=== PATIENT | female | born 1945 | race Asian ===

== ENCOUNTER 2016-09-14 07:44 | Inpatient (IN) | payer OTHER ==
[2016-09-14] VITALS (18 sets, daily range): BP systolic 118–143; BP diastolic 71–82; PULSE 80–92; RESP 14–25
[~2016-09-14] VITALS: Wt 56.8 kg
[2016-09-14] MEDS ORDERED: NITROGLYCERIN (IC) 100 MCG/ML INJ ONE (07:59)
[2016-09-14] MEDS ORDERED: LIDOCAINE 1% (MDV) 20 ML INJ ONE (07:59)
[2016-09-14] MEDS ORDERED: VERAPAMIL 5 MG INJ ONE (07:59)
[2016-09-14] MEDS ORDERED: HEPARIN 1000 UNITS/ML 10 ML INJ ONE (07:59)
[2016-09-14] MEDS ORDERED: IOHEXOL 350MG/ML 50 ML BTL ONE (08:00)
[2016-09-14 08:05] LABS: ADD SCAN DIFF NO
[2016-09-14] MEDS ORDERED: FENTAnyl 50 MCG/ML VIAL ONE (08:05)
[2016-09-14] MEDS ORDERED: MIDAZOLAM 1 MG/ML 2 ML INJ ONE (08:06)
[2016-09-14 08:10] LABS: BASOPHIL # 0.1 10^3/ul (0.0-0.1); BASOPHILS % 0.8 % (0.0-2.0); EOSINOPHILS # 0.2 10^3/ul (0.0-0.5); EOSINOPHILS % 1.9 % (0.0-7.0); HEMOGLOBIN 13.3 g/dl (12.0-16.0); LYMPHOCYTES # 2.2 10^3/ul (0.8-2.9); LYMPHOCYTES % 26.2 % (15.0-51.0); MEAN CORPUSCULAR HEMOGLOBIN 30.6 pg (29.0-33.0); MEAN CORPUSCULAR HGB CONC 32.4 g/dl (32.0-37.0); MEAN CORPUSCULAR VOLUME 94.3 fl (82.0-101.0); MEAN PLATELET VOLUME 9.6 fl (7.4-10.4); MONOCYTE # 0.5 10^3/ul (0.3-0.9); MONOCYTES % 5.4 % (0.0-11.0); NEUTROPHIL # 5.6 10^3/ul (1.6-7.5); NEUTROPHILS % 65.2 % (39.0-77.0); PLATELET COUNT 343 10^3/UL (140-415); RED BLOOD COUNT 4.35 10^6/ul (4.20-5.40); RED CELL DISTRIBUTION WIDTH 13.4 % (11.5-14.5); WHITE BLOOD COUNT 8.5 10^3/ul (4.8-10.8)
--- NOTE | 2016-09-14 08:10 | RADRPT ---
PROCEDURE: XR Chest. CLINICAL INDICATION: Code STEMI, chest pain TECHNIQUE: An AP view of the chest was obtained. COMPARISON: No prior exam is available for comparison. FINDINGS: Lung volumes are low. There is prominence of the interstitial markings. No pleural effusion or pn eumothorax is seen. The cardiomediastinal silhouette is mildly enlarged . Calcifications are seen within the aortic arch. The osseous structures demonstrate senescent changes. IMPRESSION: 1. Mild prominence of the interstitial markings, may reflect mild underlying interstitial edema or chronic lung changes. 2. Mild cardiomegaly and aortic atherosclerosis. RPTAT: HH .Hilda James MD, MD Date Time Electronically viewed and signed by .Hilda James MD, on 09/14/2016 08:10 .G/
--- NOTE | 2016-09-14 08:17 | CONS ---
Date/Time of Note Date/Time of Note DATE: 09/14/16 TIME: 08:12 Assessment/Plan Assessment/Plan Chief Complaint/Hosp Course 71 yo presents to [facility] with chest pain, ekg suggests stemi Problems: Additional Assessment/Plan stemi anterior wall htn hyperlipidemia Plan: Cath. R/B reviewed, pt agrees to proceed and all questions answered. Dr. Ramesh Gilliland is her usual phlebotomy tech, and will contact him after procedure. Pt states no plans for elective surgery and able to take medications daily. Consultation Date/Type/Reason Admit Date/Time 09/14/16 Date of Consultation: September 14, 2016 Reason for Consultation stemi Hx of Present Illness 71 yo with htn and hyperlipidemia presents with chest pain that started initially yesterday morning, went away throughout the day, then recurred stronger at 5 am. Pt has never had this pain before. EKG from [facility] shows st elevations of anterior leads with reciprocal changes in inferior leads. Patient denies h/o CAD or KS. Constitutional: improved Eyes: no complaints ENT: no complaints Respiratory: no complaints Cardiovascular: chest pain Gastrointestinal: no complaints Genitourinary: no complaints Musculoskeletal: no complaints Skin: no complaints Neurologic: no complaints Endocrine: no complaints Psychological: nl mood/affect Past Medical History Medical History: high cholesterol, hypertension Past Surgical History Past Surgical Hx: no surgical history Family History Significant Family History: no pertinent family hx (negative for premature cad) Social History Alcohol Use: none Smoking Status: Never smoker Exam/Review of Systems Vital Signs Vitals Vital Signs Date Time Temp Pulse Resp B/P Pulse Ox O2 Delivery O2 Flow Rate FiO2 09/14/16 07:52 Nasal Cannula 2 09/14/16 07:49 97.9 84 21 127/89 98 Exam Constitutional: alert, oriented Psych: nl mood/affect, no complaints Head: normocephalic Eyes: EOMI, nl conjunctiva, nl lids ENMT: mucosa pink and moist, nl lips & teeth Neck: non-tender, supple, No jvd Respiratory: clear to auscultation, normal air movement Cardiovascular: nl pulses, regular rate and rhythm Gastrointestinal: nl liver, spleen, soft Musculoskeletal: nl extremities to inspection Extremities: normal pulses, No edema Neurological: nl mental status, nl speech Skin: nl turgor, No rash or lesions Results Result Diagram: 09/14/16 0740 Results 24 hrs Laboratory Tests Test 09/14/16 07:40 White Blood Count 8.5 Red Blood Count 4.35 Hemoglobin 13.3 Hematocrit 41.0 Mean Corpuscular Volume 94.3 Mean Corpuscular Hemoglobin 30.6 Mean Corpuscular Hemoglobin Concent 32.4 Red Cell Distribution Width 13.4 Platelet Count 343 Mean Platelet Volume 9.6 Neutrophils % 65.2 Lymphocytes % 26.2 Monocytes % 5.4 Eosinophils % 1.9 Basophils % 0.8 Nucleated Red Blood Cells % 0.0 Neutrophils # 5.6 Lymphocytes # 2.2 Monocytes # 0.5 Eosinophils # 0.2 Basophils # 0.1 Nucleated Red Blood Cells # 0.0 ANAMIKA GALLEGO September 14, 2016 08:17
[2016-09-14 08:23] LABS: INR 0.92; PARTIAL THROMBOPLASTIN TIME 29.7 Sec (25.0-35.0); PROTIME 12.4 Sec (12.2-14.2)
[2016-09-14 08:28] LABS: CALCIUM 8.6 mg/dl (8.4-10.2); CREATININE 0.48 mg/dl (0.44-1.00)
[2016-09-14] MEDS ORDERED: CLOPIDOGREL 300 MG TAB ONE (08:33)
[2016-09-14 08:41] LABS: TROPONIN-I 0.7 ng/ml (0.00-0.12)
--- NOTE | 2016-09-14 08:55 | ERA ---
ER Documentation Chief Complaint Date/Time DATE: 09/14/16 TIME: 08:52 Chief Complaint CHEST PAIN SINCE YESTERDAY, SENT FROM [facility] FOR FINE SANDER. NO PAIN NOW HPI Patient is a 71-year-old female with hypertension and high cholesterol presents with a STEMI. The patient was transferred from [facility] for STEMI. I spoke with Dr. Galvin from the [facility] emergency department at [phone]. The patient was given nitroglycerin, aspirin, and morphine at [facility]. The patient had chest pain which started yesterday. The chest pain was coming and going. This morning it was worse. Upon review of old medical records this is the patient's first visit to the emergency department. She says that her primary doctor is Dr. Callahan. ROS All systems reviewed and are negative except as per history of present illness. Medications Home Meds No Active Prescriptions or Reported Meds Allergies Allergies: Coded Allergies: No Known Allergy (Unverified , 09/14/16) PMhx/Soc History of Surgery: No Anesthesia Reaction: No Hx Neurological Disorder: No Hx Respiratory Disorders: No Hx Cardiac Disorders: Yes (htn) Hx Psychiatric Problems: No Hx Miscellaneous Medical Probl: Yes (high cholesterol) Hx Alcohol Use: No Hx Substance Use: No Hx Tobacco Use: No Smoking Status: Never smoker FmHx Family History: No coronary disease Physical Exam Vitals Vital Signs Date Time Temp Pulse Resp B/P Pulse Ox O2 Delivery O2 Flow Rate FiO2 09/14/16 07:52 Nasal Cannula 2 09/14/16 07:49 97.9 84 21 127/89 98 Physical Exam Const: No acute distress Head: Atraumatic Eyes: Normal Conjunctiva ENT: Normal External Ears, Nose and Mouth. Neck: Full range of motion..~ No meningismus. Resp: Clear to auscultation bilaterally Cardio: Regular rate and rhythm, no murmurs Abd: Soft, non tender, non distended. Normal bowel sounds Skin: No petechiae or rashes Back: No midline or flank tenderness Ext: No cyanosis, or edema Neur: Awake and alert Psych: Normal Mood and Affect Result Diagram: 09/14/1640 09/14/1640 Results 24 hrs Laboratory Tests Test 09/14/16 07:40 White Blood Count 8.510^3/ul Red Blood Count 4.3510^6/ul Hemoglobin 13.3g/dl Hematocrit 41.0% Mean Corpuscular Volume 94.3fl Mean Corpuscular Hemoglobin 30.6pg Mean Corpuscular Hemoglobin Concent 32.4g/dl Red Cell Distribution Width 13.4% Platelet Count 96599^3/UL Mean Platelet Volume 9.6fl Neutrophils % 65.2% Lymphocytes % 26.2% Monocytes % 5.4% Eosinophils % 1.9% Basophils % 0.8% Nucleated Red Blood Cells % 0.0/100WBC Neutrophils # 5.610^3/ul Lymphocytes # 2.210^3/ul Monocytes # 0.510^3/ul Eosinophils # 0.210^3/ul Basophils # 0.110^3/ul Nucleated Red Blood Cells # 0.010^3/ul Prothrombin Time 12.4Sec Prothrombin Time Ratio 1.0 INR International Normalized Ratio 0.92 Activated Partial Thromboplast Time 29.7Sec Sodium Level 141mmol/L Potassium Level 4.0mmol/L Chloride Level 104mmol/L Carbon Dioxide Level 26mmol/L Anion Gap 15 Blood Urea Nitrogen 11mg/dl Creatinine 0.48mg/dl Glucose Level 155mg/dl Calcium Level 8.6mg/dl Troponin I 0.700ng/ml Procedures/MDM EKG read by me: Rate/Rhythm: Regular rate and rhythm at a rate of 88 Intervals: Normal Impression: Mild ST elevations along the precordial leads Patient is a 71-year-old female with hypertension and high cholesterol presents with a STEMI. I reviewed EKGs from [facility] which were consistent with STEMI. The patient was accepted in transfer as we are a STEMI receiving center at [facility] not. I spoke with Dr. Monroy at 0726. A code STEMI was called at 0726 as well. The patient arrived at 0745. The patient went to the cardiac Low Pressure Boiler Operator at 0804. Dr. Monroy said that she would anticoagulate the patient in the cardiac Low Pressure Boiler Operator. The patient had already been given aspirin, nitroglycerin, and morphine at [facility] emergency department. Critical Care: Time: 35 minutes excluding all billable procedures. Treatments/Evaluations: Close monitoring and treatment of unstable vital signs, cardiorespiratory, and neurologic status, while maintaining tight balance of fluid, respiratory, and cardiac interventions. Departure Diagnosis: Primary Impression: STEMI (ST elevation myocardial infarction) Qualified Code: I21.3 - ST elevation myocardial infarction (STEMI), unspecified artery Additional Impression: Chest pain Qualified Code: I20.9 - Chest pain due to myocardial ischemia, unspecified ischemic chest pain type Condition: BIANKA Mcnally MD September 14, 2016 08:55
--- NOTE | 2016-09-14 09:15 | EN ---
Date/Time of Note Date/Time of Note DATE: 09/14/16 TIME: 09:09 Event Note Cardiology Cardiology Event Note Cardiac Catheterization Report Date of Procedure: September 14, 2016 Pre-Procedure Dx: STEMI of the anterior wall Post-Procedure Dx: STEMI due to occlusion of mid LAD Procedures performed: Coronary angiography, left heart catheterization, left ventriculography, angioplasty and stent placement to the mid LAD Findings: Left main normal LAD 100% occluded in mid portion. The vessel is small distal to the lesion, with a moderate sized diagonal distal to the lesion. LCX normal. Two large distal obtuse marginals which extend toward the apex RCA dominant, 20% mid, large normal PDA LV gram demonstrates normal LV systolic function, EF 60%, no wall motion abnormalities. Indications: Patient presented with chest pain starting at least one day ago, waxing and waning, with persistent chest pain since 5 am on day of presentation to [facility], EKG shows ST elevations in anterior leads with reciprocal changes. Informed consent obtained. Patient received sedation with versed and fentanyl. Then access obtained in right radial artery after Alex's test, modified Seldinger technique used, 6F sheath placed. Through the sheath, heparin 4000 units, verapamil 2.5 mg and ntg 200 mcg given. Using a J-wire, a [place] catheter advanced to the aortic root, engaged the LM. A JR4 engaged the RCA. Angiography performed. It was decided to intervene on the mid LAD lesion. An FL 3.5 guide catheter was used. Patient received an additional 4000 units of heparin, ACT checked and was sufficiently elevated. Patient loaded during the case with 600 mg clopidogrel. A Luge wire passed through the lesion, and a 2.0 x 15 mm balloon inflated within the lesion, followed by placement of a 2.5 x 15 mm Xience Alpine drug-eluting stent. Images obtained including a wire out shot demonstrating good apposition of the stent and pricilla 3 flow. Then left ventriculography performed, pullback gradient measured. All catheter exchanges done over a 260-cm J wire. At the end of the case, the radial sheath was removed and replaced with a TR band. Discussion: STEMI due to occlusion of the mid LAD. Drug eluting stent placed. Plan is for admission, observation overnight, and likely discharge on Friday 09/15. Case discussed with patient's outpatient body die maker Dr. Gilliland , who will assume care post discharge. ANAMIKA GALLEGO September 14, 2016 09:15
[2016-09-14] MEDS ORDERED: ATORVASTATIN 80 MG TAB PO ONE (09:30)
[2016-09-14] MEDS ORDERED: CLOPIDOGREL 75 MG TAB ONE (09:37)
[2016-09-14] MEDS ORDERED: ALBUTEROL 0.083% (NEB) 2.5 MG/3 ML AMP HHN ONE (10:30)
--- NOTE | 2016-09-14 14:15 | RADRPT ---
Vent Rate: 82 bpm RR Interval: 0 msec MD Interval: 164 msec QRS Duration: 78 msec QT Interval: 462 msec QTC Interval: 539 msec P-R-T Marlow: 42 - -56 - 134 degrees Normal sinus rhythm Left axis deviation Septal infarct , age undetermined T wave abnormality, consider anterolateral ischemia Prolonged QT Abnormal ECG Electronically Signed By: Wilfrido Lucas [id number]
[2016-09-14 14:52] LABS: TROPONIN-I 47.5 ng/ml (0.00-0.12)
[2016-09-14] MEDS ORDERED: morphine 2 MG INJ IV PRN (17:00)
[2016-09-14] MEDS ORDERED: NACL 0.9% 3 ML SYG IV SCH (17:00)
[2016-09-14] MEDS ORDERED: HYDROCODONE/APAP (5/325) TAB PO PRN (17:00)
[2016-09-14] MEDS ORDERED: ZOLPIDEM 5 MG TAB PO PRN (17:00)
[2016-09-14] MEDS ORDERED: ONDANSETRON 4 MG INJ IV PRN (17:00)
[2016-09-14] MEDS ORDERED: DOCUSATE SODIUM 100 MG CAP PO PRN (17:00)
[2016-09-14] MEDS ORDERED: ACETAMINOPHEN 325 MG TAB PO PRN (17:00)
--- NOTE | 2016-09-14 17:22 | HP ---
DATE OF ADMISSION: 09/14/2016 CHIEF COMPLAINT: Chest pain. HISTORY OF PRESENT ILLNESS: The patient is a 71-year-old female with history of hypertension and dy slipidemia. The patient presents with chest pain that started yesterday morning. The patient prese nted to the ED where she had an EKG that showed STEMI. The patient was taken to the hospital laboratory technician where she had a coronary angiography, angioplasty and stent placement to the mid LAD. The patient current ly denies any chest pain, shortness of breath. PAST MEDICAL HISTORY: Hypertension, dyslipidemia. PAST SURGICAL HISTORY: Denies. MEDICATIONS: For hypertension and cholesterol. Home medications are not known at this time. ALLERGIES: NO KNOWN DRUG ALLERGIES. FAMILY HISTORY: Denies. SOCIAL HISTORY: Denies any tobacco, alcohol or drug abuse. REVIEW OF SYSTEMS: A 12-point review of systems negative except for that as in HPI. PHYSICAL EXAMINATION: VITAL SIGNS: Temperature is 98.7, pulse is 90, respiratory rate is 25, BP is 120/78, saturation 92% on room air. GENERAL: No acute distress, alert and oriented. HEENT: Normocephalic, atraumatic. LUNGS: Clear to auscultation. CARDIOVASCULAR: Regular rate and rhythm. ABDOMEN: Nondistended, nontender, soft. EXTREMITIES: No clubbing, cyanosis, or edema. LABORATORIES: CBC within normal limits. Chemistry within normal limits except for troponin which w as elevated at 0.7 and 47.5. DIAGNOSTICS: Chest x-ray shows chronic lung changes, mild cardiomegaly and aortic atherosclerosis. EKG showed ST elevations in anterior leads with reciprocal changes. ASSESSMENT AND PLAN: 1. ST elevation myocardial infarction status post percutaneous coronary intervention with stent arcenio cement in the mid left anterior descending. Patient is currently chest pain free. Continue cardiac medications with aspirin, Plavix and check A1c. We will also check a liver profile. 2. Hypertension. We will put the patient on Coreg. 3. Dyslipidemia, statin. 4. Prophylaxis, sequential compression devices. Dictated By: WILIAN MUNIZ MD BS/NTS Conf#: [id number] DID#: [id number]
--- NOTE | 2016-09-14 18:53 | RADRPT ---
Echocardiogram Report Patient Name: ALYSHA DIXON Gender: Female Date: 1945 Study Date: 14-Sep-2016 Retail Store Associate: Michelle Montague RDCS Location: PACU Ref. Physician: EDWINA GALLEGO Quality: Adequate Procedures: Transthoracic echocardiogram with complete 2D, M-Mode, and doppler examination. Indications: Post Myocardial Infarction. 2D/M Mode Doppler Measurement Value Normal Ranges Measurement Value Normal Ranges LVIDd 2D 4.2 3.5 - 5.6 cm AV Peak Chuck 1.3 m/sec LVIDs 2D 2.4 2.1 - 4.1 cm AV Peak PG 7.0 mmHg FS 2D 44.1 % LVOT Peak Chuck 0.7 m/sec LVPWd 2D 0.7 0.6 - 1.1 cm LVOT Peak PG 2.0 mmHg IVSd 2D 0.9 0.6 - 1.1 cm MV E Peak Chuck 0.7 m/sec IVS/LVPW 2D 1.1 MV A Peak Chuck 1.0 m/sec AoR Diam 2D 2.4 2.0 - 3.7 cm MV E/A 0.7 LA/Ao 2D 1 0 - 1 MV Decel Time 141 msec EDV 2D 75.2 cm3 MV E/A 0.7 ESV 2D 13.1 cm3 LA Dimen 2D 2.5 2.3 - 4.0 cm Findings Left Ventricle: Lower limits of normal systolic function. Normal left ventricular cavity size. Normal left ventricular wall thickness. Ejection fraction is visually estimated at 50 %. Tissue Doppler/Mitral Doppler indices are consistent with impaired relaxation (Stage I diastolic dysfunction). These segments of the LV are hypokinetic mid septum segment, inferior mid segment, inferior apex segment, apex, anteroseptum mid segment, apical septum, anterior apex segment and mid anterior segment. Right Ventricle: Normal right ventricular size. Normal right ventricular systolic function. Left Atrium: The left atrium is normal in size. Right Atrium: The right atrium is normal in size. Mitral Valve: Mitral valve leaflets appear mildly thickened. Mild mitral annular calcification. Mild mitral valve regurgitation. Aortic Valve: Normal appearance of the aortic valve. No significant aortic stenosis or insufficiency. Tricuspid Valve: Normal appearance of the tricuspid valve. Unable to obtain RVSP due to minimal presence of tricuspid regurgitation. Pulmonic Valve: Pulmonic valve not well visualized. Pericardium: Normal pericardium with no significant pericardial effusion. Aorta: Normal aortic root. IVC: Normal size and normal respiratory collapse consistent with normal right atrial pressure. Conclusions Technically difficult study. Low normal left ventricular systolic function with LAD distribution hypokinesis as described above. Mild mitral regurgitation. Grade 1 diastolic dysfunction. Electronically Signed By: Edwina Gallego 14-Sep-2016 18:52:45 -0700 Patient Name: ALYSHA DIXON Study Date: 14-Sep-2016 [id number]
[2016-09-14 21:21] LABS: TROPONIN-I 32.5 ng/ml (0.00-0.12)
[2016-09-15] VITALS (8 sets, daily range): BP systolic 100–130; BP diastolic 60–71; PULSE 86–91; RESP 18–20
[2016-09-15 01:19] LABS: ADD SCAN DIFF NO
[2016-09-15 01:28] LABS: BASOPHIL # 0.1 10^3/ul (0.0-0.1); BASOPHILS % 0.3 % (0.0-2.0); EOSINOPHILS % 0.1 % (0.0-7.0); HEMATOCRIT 40.3 % (37.0-47.0); HEMOGLOBIN 13.2 g/dl (12.0-16.0); LYMPHOCYTES # 1.8 10^3/ul (0.8-2.9); LYMPHOCYTES % 11.8 % (15.0-51.0); MEAN CORPUSCULAR HEMOGLOBIN 30.4 pg (29.0-33.0); MEAN CORPUSCULAR HGB CONC 32.8 g/dl (32.0-37.0); MEAN CORPUSCULAR VOLUME 92.9 fl (82.0-101.0); MEAN PLATELET VOLUME 9.5 fl (7.4-10.4); MONOCYTE # 1.1 10^3/ul (0.3-0.9); MONOCYTES % 7.4 % (0.0-11.0); NEUTROPHIL # 11.8 10^3/ul (1.6-7.5); NEUTROPHILS % 79.9 % (39.0-77.0); PLATELET COUNT 350 10^3/UL (140-415); RED BLOOD COUNT 4.34 10^6/ul (4.20-5.40); RED CELL DISTRIBUTION WIDTH 13.4 % (11.5-14.5); WHITE BLOOD COUNT 14.8 10^3/ul (4.8-10.8)
[2016-09-15 01:42] LABS: CALCIUM 8.8 mg/dl (8.4-10.2); CHOL/HDL RATIO 4.3 RATIO; CREATININE 0.48 mg/dl (0.44-1.00); POTASSIUM 3.5 mmol/L (3.5-5.1)
[2016-09-15 02:59] LABS: MAGNESIUM 2.1 mg/dl (1.7-2.5); PHOSPHORUS 3.4 mg/dl (2.5-4.9)
--- NOTE | 2016-09-15 06:57 | PN ---
Date/Time of Note Date/Time of Note DATE: 09/15/16 TIME: 06:51 Assessment/Plan VTE Prophylaxis VTE Prophylaxis Intervention: ambulation Lines/Catheters IV Catheter Type (from Nrsg): Peripheral IV Assessment/Plan Chief Complaint/Hosp Course 71 yo presents to [facility] with chest pain, ekg suggests stemi Problems: Assessment/Plan STEMI of anterior wall, s/p PCI/drug-eluting stent to the mid LAD hypertension, controlled dyslipidemia Recommendations: Patient stable for discharge, asked her to f/u with her school guidance counselor Dr. Ramesh Gilliland. I've already spoken to him. Continue outpatient carvedilol dose of 6.25 mg bid Stop outpatient simvastatin, take atorvastatin 80 mg daily, more potent for CV risk reduction as secondary prevention ASA and clopidogrel x 1 year, reiterated importance of compliance to prevent stent thrombosis Exercise, better food choices, less fried foods/greasy foods/white rice/fish sauce, more fruits and vegetables, less meat and more vegetarian choices Subjective 24 Hr Interval Summary Free Text/Dictation Patient comfortable this am, has been able to ambulate to the bathroom, no chest pain. Respiratory: No shortness of breath Cardiovascular: No chest pain Exam/Review of Systems Vital Signs Vitals Vital Signs Date Time Temp Pulse Resp B/P Pulse Ox O2 Delivery O2 Flow Rate FiO2 09/15/16 04:18 90 09/15/16 03:26 98.7 19 130/71 99 09/14/16 17:43 Room Air 09/14/16 07:52 2 Intake and Output 09/14/16 09/14/16 09/15/16 15:00 23:00 07:00 Intake Total 435 ml 720 ml Balance 435 ml 720 ml Exam Constitutional: alert, oriented, well developed Psych: nl mood/affect, no complaints Head: atraumatic, normocephalic Eyes: EOMI, nl conjunctiva, nl lids, nl sclera ENMT: nl external ears & nose, nl lips & teeth, nl nasal mucosa & septum Neck: No jvd Respiratory: clear to auscultation, normal air movement Cardiovascular: regular rate and rhythm, No jugular venous distention (JVD), No murmurs/extra sounds Gastrointestinal: non-tender, soft Musculoskeletal: nl extremities to inspection Extremities: No edema Neurological: nl mental status, nl speech Skin: nl turgor, No rash or lesions Additional Comments right radial cath site intact, normal radial pulse, hand warm, good strength Results Echo reviewed yesterday shows EF 50%, LAD distribution wall motion abnormality Result Diagram: 09/15/16 0040 09/15/16 0040 Results 24 hrs Laboratory Tests Test 09/14/16 07:40 09/14/16 13:35 09/14/16 20:10 09/15/16 00:40 White Blood Count 8.5 14.8 #H Red Blood Count 4.35 4.34 Hemoglobin 13.3 13.2 Hematocrit 41.0 40.3 Mean Corpuscular Volume 94.3 92.9 Mean Corpuscular Hemoglobin 30.6 30.4 Mean Corpuscular Hemoglobin Concent 32.4 32.8 Red Cell Distribution Width 13.4 13.4 Platelet Count 343 350 Mean Platelet Volume 9.6 9.5 Neutrophils % 65.2 79.9 H Lymphocytes % 26.2 11.8 L Monocytes % 5.4 7.4 Eosinophils % 1.9 0.1 Basophils % 0.8 0.3 Nucleated Red Blood Cells % 0.0 0.0 Neutrophils # 5.6 11.8 H Lymphocytes # 2.2 1.8 Monocytes # 0.5 1.1 H Eosinophils # 0.2 0.0 Basophils # 0.1 0.1 Nucleated Red Blood Cells # 0.0 0.0 Prothrombin Time 12.4 Prothrombin Time Ratio 1.0 INR International Normalized Ratio 0.92 Activated Partial Thromboplast Time 29.7 Sodium Level 141 135 Potassium Level 4.0 3.5 Chloride Level 104 103 Carbon Dioxide Level 26 23 Anion Gap 15 13 Blood Urea Nitrogen 11 11 Creatinine 0.48 0.48 Glucose Level 155 145 Calcium Level 8.6 8.8 Troponin I 0.700 *H 47.500 *H 32.500 *H Creatine Kinase 2482 H 1425 H Creatine Kinase Index 7.6 7.6 Creatinine Kinase MB (Mass) 188.00 H 108.00 H Hemoglobin A1c 5.8 Phosphorus Level 3.4 Magnesium Level 2.1 Triglycerides Level 124 Cholesterol Level 173 LDL Cholesterol, Calculated 108 HDL Cholesterol 40 Cholesterol/HDL Ratio 4.3 Medications Medications Current Medications Clopidogrel Bisulfate (plaVIX) 75 mg ONCE ONCE PO ; Start 09/15/16 at 09:30; Stop 09/15/16 at 09:31 Aspirin (Aspirin) 81 mg ONCE ONCE PO ; Start 09/15/16 at 09:30; Stop 09/15/16 at 09:31 Ondansetron HCl (Zofran Inj) 4 mg Q6H PRN IV NAUSEA AND/OR VOMITING; Start 09/14 at 17:00 Acetaminophen (Tylenol Tab) 650 mg Q6H PRN PO PAIN LEVEL 1-3 OR FEVER; Start at 17:00 Acetaminophen/ Hydrocodone Bitart ([place] (5/325)) 1 tab Q6H PRN PO MODERATE PAIN LEVEL 4-6; Start 09/14/16 at 17:00 Morphine Sulfate (morphine) 2 mg Q4H PRN IV SEVERE PAIN LEVEL 7-10; Start at 17:00 Docusate Sodium (Colace) 100 mg Q12H PRN PO CONSTIPATION; Start 09/14/16 at 17: 00 Zolpidem Tartrate (Ambien) 5 mg QHS PRN PO SLEEP; Start 09/14/16 at 17:00 Atorvastatin Calcium (Lipitor) 80 mg HS PO ; Start 09/15/16 at 21:00 Carvedilol (Coreg) 6.25 mg BID PO Last administered on 09/14/16t 21:23; Admin Dose 6.25 MG; Start 09/14/16 at 21:00 ANAMIKA GALLEGO September 15, 2016 06:57
[2016-09-15] MEDS ORDERED: ASPIRIN 81 MG TAB PO ONE (09:30)
[2016-09-15] MEDS ORDERED: CLOPIDOGREL 75 MG TAB PO ONE (09:30)
[2016-09-15] MEDS ORDERED: CARV6.2579 PO (13:33)
[2016-09-15] MEDS ORDERED: ATOR80TA75 PO (13:33)
[2016-09-15] MEDS ORDERED: CLOP75TA27 PO (13:33)
[2016-09-15] MEDS ORDERED: ASPI-664 PO (13:33)
--- NOTE | 2016-09-15 13:34 | PDOCDIS ---
Discharge Instructions CONDITION Patient Condition: Good HOME CARE INSTRUCTIONS: Diet Instructions: Modified Fat ACTIVITY: Activity Restrictions: No Restrictions FOLLOW UP/APPOINTMENTS Appointments F/U WITH YOUR PCP IN 1-2 WEEKS, F/U WITH YOUR PROPAGATOR LABORER WILIAN MUNIZ September 15, 2016 13:34
--- NOTE | 2016-09-15 17:40 | DS ---
DATE OF ADMISSION: 09/14/2016 DATE OF DISCHARGE: 09/15/2016 DISCHARGE DIAGNOSES: 1. ST elevation myocardial infarction status post percutaneous coronary intervention with stent arcenio cement in the mid left anterior descending. The patient is stable for discharge with cardiac meds i ncluding aspirin, Plavix, high-dose statin and beta micah. 2. Hypertension. Continue home Coreg. 3. Dyslipidemia, high-dose statin. HOSPITAL COURSE: The patient is a 71-year-old female with a history of hypertension, dyslipidemia. The patient presents with chest pain. She was found to have a STEMI. She underwent PCI. She had angioplasty and stent placement to the mid LAD. On the day of discharge, the patient was chest pain free. She is felt to be stable for discharge per cardiology. The patient was advised that she nee ds to be compliant with her medications and diet recommendations were also recommended to the miladys chaudhary. On the day of discharge, the patient's vitals, labs, physical exam were stable. She had no acut e complaints and questions answered. CONDITION ON DISCHARGE: Stable. DISPOSITION: To home. MEDICATIONS: The patient was given prescriptions for: 1. Aspirin 81 daily. 2. Lipitor 80 p.o. at bedtime. 3. Coreg 6.25 p.o. b.i.d. 4. Plavix 75 mg daily. Of note, the patient also has Coreg 6.25 and the patient was given once again a refill of that medic ation. She also has home dose of Lipitor 40, but she was told to start taking the 80 mg dose, which she was given a prescription for. FOLLOWUP: The patient is to follow up with her PCP in 1 to 2 weeks and with the audio production manager. Of jane yap, Dr. Case of cardiology reportedly already spoke to her audio production manager, Dr. Ramesh Gilliland. So on ce again, the patient is to follow up with her PCP in 1 to 2 weeks and with her audio production manager. Greater than 30 minutes was spent coordinating discharge of patient. Dictated By: WILIAN MUNIZ MD BS/NTS Conf#: [id number] DID#: [id number]
[2016-09-15] MEDS ORDERED: ATORVASTATIN 80 MG TAB PO SCH (21:00)
== END 2016-09-15 14:40 | disposition home or self-care (01) | DRG 247 ==
LOC: E/R 07:44 → CCL 08:04 → MS4 18:38
PROVIDERS: ADMIT Internal Medicine Interventional Cardiology; ATTEND Internal Medicine Interventional Cardiology
PROC: 027034Z Dilation of Coronary Artery, One Artery with Drug-eluting Intraluminal Device, Percutaneous Approach (ICD-10-PCS; principal; 2016-09-14)
PROC: 4A023N7 Measurement of Cardiac Sampling and Pressure, Left Heart, Percutaneous Approach (ICD-10-PCS; 2016-09-14)
PROC: B211YZZ Fluoroscopy of Multiple Coronary Arteries using Other Contrast (ICD-10-PCS; 2016-09-14)
PROC: B215YZZ Fluoroscopy of Left Heart using Other Contrast (ICD-10-PCS; 2016-09-14)
DX: I21.09 ST elevation (STEMI) myocardial infarction involving other coronary artery of anterior wall (principal); I10 Essential (primary) hypertension; I25.10 Atherosclerotic heart disease of native coronary artery without angina pectoris; E78.5 Hyperlipidemia, unspecified; Z79.82 Long term (current) use of aspirin; Z79.02 Long term (current) use of antithrombotics/antiplatelets
CPT/HCPCS: 36415; 71010; 80048; 80061; 82550; 82553; 83036; 83735; 84100; 84484; 85025; 85610; 85730; 93005; 93306; 93458; C1725; C1769; C1876; C1887; C9606; J1644; J2250; J3010; Q9967